=== PATIENT | male | born 1975 | race Caucasian/White ===

== ENCOUNTER 2016-11-10 10:05 | Emergency (ER) | payer OTHER ==
[~2016-11-10] VITALS: Ht 193 cm; Wt 122.5 kg
[2016-11-10] MEDS ORDERED: CARBAMIDE PEROXIDE 6.5% 15 ML OTIC SOLUTION AU ONE (11:00)
[2016-11-10 11:52] VITALS: BP 137/88
== END 2016-11-10 11:56 | disposition home or self-care (01) ==
LOC: EMS 10:09
DX: H61.23 Impacted cerumen, bilateral (principal); I10 Essential (primary) hypertension
CPT/HCPCS: 69209; 99282